=== PATIENT | female | born 1930 | race Two or more races ===

== ENCOUNTER 2019-07-05 06:54 | Inpatient (IN) | payer MEDICARE, OTHER ==
[~2019-07-05] VITALS: Ht 149.9 cm; Wt 51.7 kg
--- NOTE | 2019-07-05 06:58 | NUR ---
BIBEMS PT FOUND LYING ON BATHROOM FLOOR. PT ALTERED PER SNF STAFF. UNK KO. NO OBVIOUS HEAD TRAUMA. TO ER BED 8, HOOKED TO MONITOR, CHANGED TO HOSP GOWN, WARM BLANKET PROVIDED, PATIENT AOx1 , BREATHING EVEN AND UNLABORED. DR JAMES AT BEDSIDE
[2019-07-05] MEDS ORDERED: IV NS 0.9% 500 ML BAG IV ONE (07:30)
[2019-07-05 07:32] LABS: BASOPHILS % (AUTO) 0.4 % (0.0-2.0); EOSINOPHILS % (AUTO) 0.8 % (0.0-6.0); HEMATOCRIT 44 % (33-45); HEMOGLOBIN 14.3 g/dL (11.5-14.8); LYMPHOCYTES # (AUTO) 1.6 /CMM (0.8-4.8); LYMPHOCYTES % (AUTO) 16.8 % (20.0-44.0); MEAN CORPUSCULAR HGB CONC 33 g/dl (31.0-36.0); MEAN CORPUSCULAR VOLUME 95 fL (82-100); MONOCYTES # (AUTO) 0.5 /CMM (0.1-1.30); MONOCYTES % (AUTO) 5.5 % (2.0-12.0); NEUTROPHILS # (AUTO) 7.4 /CMM (1.8-8.9); NEUTROPHILS % (AUTO) 76.5 % (43.0-81.0); PLATELET COUNT (AUTO) 208 /CMM (150-450); RED BLOOD CELL COUNT(AUTO) 4.59 MIL/uL (4.0-5.2); WHITE BLOOD COUNT (AUTO) 9.7 K/uL (4.3-11.0)
[2019-07-05 07:39] LABS: CALCIUM, SERUM 9.1 mg/dL (8.5-10.1); CREATININE 1.1 mg/dL (0.6-1.3)
[2019-07-05 08:50] LABS: APPEARANCE,URINE Clear (CLEAR); BILIRUBIN,URINE Negative (NEGATIVE); BLOOD, URINE Trace-intact Ery/uL (NEGATIVE); COLOR,URINE Yellow (YELLOW); KETONES,URINE Negative (NEGATIVE); LEUKOCYTE ESTERASE ,URINE Negative (NEGATIVE); NITRITE, URINE Negative (NEGATIVE); PH,URINE 5.5 (5.0-8.0); PROTEIN,URINE Negative (NEGATIVE); UGLUCOSE Negative (NEGATIVE); UROBILINOGEN,URINE 0.2 EU/dL (0.2)
[2019-07-05 08:53] LABS: BACTERIA,URINE Rare /HPF (None Seen); SQUAMOUS EPITHELIAL CELL,UR Few /HPF (None Seen); WBC,URINE 0-2 /HPF (0-3)
--- NOTE | 2019-07-05 09:02 | NUR ---
WHEELED OUT VIA RNEY FOR CT SCAN
[2019-07-05] MEDS ORDERED: CRAN3875 PO (09:12)
[2019-07-05] MEDS ORDERED: DOCU-141 PO (09:12)
[2019-07-05] MEDS ORDERED: DICY10CA13 PO (09:12)
[2019-07-05] MEDS ORDERED: APRE30TA2 PO (09:12)
[2019-07-05] MEDS ORDERED: OMEG1CAP55 PO (09:12)
[2019-07-05] MEDS ORDERED: MAGN400O6 PO (09:12)
[2019-07-05] MEDS ORDERED: DEXT15DR6 EACHEYE (09:12)
[2019-07-05] MEDS ORDERED: CYCL30DR OP (09:12)
[2019-07-05] MEDS ORDERED: FAMO20TA8 PO (09:12)
[2019-07-05] MEDS ORDERED: GABA-532 PO (09:12)
[2019-07-05] MEDS ORDERED: ACET325T53 PO (09:12)
[2019-07-05] MEDS ORDERED: LACT1CAP61 PO (09:12)
[2019-07-05] MEDS ORDERED: MULT-447 PO (09:12)
[2019-07-05] MEDS ORDERED: CRAN425C6 PO (09:12)
[2019-07-05] MEDS ORDERED: OXYB10TA30 PO (09:12)
--- NOTE | 2019-07-05 10:07 | NUR ---
called [facility] [phone] its chang
--- NOTE | 2019-07-05 10:21 | NUR ---
called colin its felipe.
--- NOTE | 2019-07-05 11:20 | NUR ---
CALLED FOR MS BED
--- NOTE | 2019-07-05 11:29 | NUR ---
GOT BED 310-2
--- NOTE | 2019-07-05 11:51 | NUR ---
REPORT GIVEN TO ALYSSA CHAPMAN OF MS UNIT
[2019-07-05 13:15] VITALS: BP 104/57
--- NOTE | 2019-07-05 13:30 | NUR ---
MS RN NOTES RECEIVED PATIENT FROM ER AFTER LUNCH PATIENT IN BED RESTING, OPENS EYES WITH PAINFUL STIMULI ONLY. BP OF 95/58 PULSE OF 95 PULSE OX OF 96%. DR. MARTÍNEZ MADE AWARE ORDERS GIVEN FOR STAT ABG AND DR MARTÍNEZ WILL EVALUATE PATIENT SOON SHE CAN. WILL CONTINUE TO MONITOR CLOSELY.
[2019-07-05] MEDS ORDERED: Z GUARD REMEDY 2 OZ OINT TP PRN (14:00)
[2019-07-05] MEDS ORDERED: MORPHINE SULFATE INJ 2 MG/ML DISP.SYRIN IV PRN (14:00)
[2019-07-05] MEDS ORDERED: ACETAMINOPHEN 325 MG TABLET PO PRN (14:00)
[2019-07-05] MEDS ORDERED: ONDANSETRON HCL/PF 4 MG/2 ML VIAL IVP PRN (14:00)
[2019-07-05] MEDS ORDERED: MAGNESIUM HYDROXIDE 30 ML UDC PO PRN (14:00)
[2019-07-05] MEDS: IV NS 0.9% 1,000 ML IV PRN (14:07)
[2019-07-05 14:35] LABS: ABG PH 7.481 (7.350-7.450); ABG PO2 81.4 mmHg (75.0-100.0); AaDO2 81.7 mmHg; COHb 0.5 % (0.5-1.5); MetHb 0.5 % (0.0-1.5); SITE, ABG Left Radial
[2019-07-05 16:00] VITALS: BP 106/59
--- NOTE | 2019-07-05 16:00 | NUR ---
DIRECTOR OF LABOR RELATIONS NOTES PATIENT SEEN AND EVALUATED BY DR. MARTÍNEZ ORDERS TO ADD AMONIA LEVEL TO AM LABS OBTAIN URINE FOR DRUG SCREEN. TRANSFER TO TELE. CONSULT WITH DR. MEEKS. CONTINUE IV FLUIDS. AND CONTINUE TO MONITOR.
--- NOTE | 2019-07-05 18:24 | NUR ---
WASH MILL OPERATOR NOTES PATIENT IN BED SLEEPING HARD OPENS EYES TO PAINFUL STIMULI. PATIENT APPEARS LETHARGIC. DAUGHTER AT BEDSIDE. COMPRESSION DEVICE APPLIED TO BLE. PERIPHERAL IV INTACT PATENT RUNNING NS AT 75ML/HR. PATIENT ON TELE MONITORING PER DR. MARTÍNEZ'S ORDERS SR . BED IN LOW LOCKED POSITION. CALL LIGHT WITHIN REACH. WILL CONTINUE TO MONITOR. PATIENT WITH NO ACUTE CHANGES.
--- NOTE | 2019-07-05 19:40 | NUR ---
RN OPENING NOTES RECEIVED REPORT FROM STEPHENMSALEXANDER BULLARD. FAMILY VISITING AT BEDSIDE. PER REPORT Pt ARRIVED TO THE FLOOR LETHARGIC, AND ONLY WITHDRAWS FROM PAIN AND STERNAL RUBBING; PER REPORT AND FAMILY REPORT Pt DID OPEN HER EYES WHEN LABS WERE BEING DRAWN, BUT DID NOT SPEAK, AND WENT BACK TO SLEEP RIGHT AFTER. PER FAMILY REPORT, Pt IS ABLE TO SPEAK AND COMMUNICATE WELL, EVEN WITH BASELINE DEMENTIA. FOUND Pt STILL ASLEEP, WITH UNLABORED RESPIRATIONS, AND EQUAL CHEST RISE AND FALL. ON TELE MONITOR, WITH TELE READING SR 90s. IV ACCESS ON LFA #20G, IVF NS RUNNING @75ML/HR, INFUSING WELL. SAFETY MEASURES IN PLACE, BED LOW, LOCKED, HOB ELEVATED, SIDE RAILS UP, CALL LIGHT AND BEDSIDE TABLE WITHIN REACH. WILL CONTINUE TO MONITOR Pt's CONDITION AND SAFETY THROUGHOUT THE NIGHT.
[2019-07-05 20:00] VITALS: BP 105/50
[2019-07-06 00:01] VITALS: BP 120/62
[2019-07-06 04:00] VITALS: BP 114/68
--- NOTE | 2019-07-06 06:30 | NUR ---
RN NOTES BLADDER SCANNER SHOWED >300CC OF URINE BEING RETAINED. INFORMED DR BLANCO, GAVE ORDER FOR STRAIGHT CATH X1. WILL CARRY OUT ORDER.
--- NOTE | 2019-07-06 07:00 | NUR ---
RN NOTES 400ML STRAIGHT CATH URINE OUTPUT TEA COLORED, NO SEDIMENTS NOTED.
[2019-07-06 07:13] LABS: BASOPHILS % (AUTO) 0.1 % (0.0-2.0); EOSINOPHILS % (AUTO) 0.1 % (0.0-6.0); HEMATOCRIT 39 % (33-45); LYMPHOCYTES # (AUTO) 0.8 /CMM (0.8-4.8); LYMPHOCYTES % (AUTO) 5.7 % (20.0-44.0); MEAN CORPUSCULAR HGB CONC 33 g/dl (31.0-36.0); MEAN CORPUSCULAR VOLUME 93 fL (82-100); MONOCYTES # (AUTO) 0.8 /CMM (0.1-1.30); MONOCYTES % (AUTO) 5.5 % (2.0-12.0); NEUTROPHILS # (AUTO) 13.1 /CMM (1.8-8.9); NEUTROPHILS % (AUTO) 88.6 % (43.0-81.0); PLATELET COUNT (AUTO) 165 /CMM (150-450); RED BLOOD CELL COUNT(AUTO) 4.24 MIL/uL (4.0-5.2); WHITE BLOOD COUNT (AUTO) 14.8 K/uL (4.3-11.0)
--- NOTE | 2019-07-06 07:15 | NUR ---
RN CLOSING NOTES NO SIGNIFICANT CHANGES IN Pt's CONDITION. Pt IS RESTING COMFORTABLY IN BED. NO S/S OF ACUTE DISTRESS OR SOB NOTED. ALL NEEDS MET AND ATTENDED TO. SAFETY MEASURES IN PLACE. WILL ENDORSE TO DAYSHIFT RN FOR Pt's SUSIE.
[2019-07-06 07:43] LABS: THYROID STIMULATING HORMONE 0.634 uIU/mL (0.358-3.74)
[2019-07-06 07:46] LABS: ALBUMIN 2.9 g/dL (3.4-5.0); BILIRUBIN,TOTAL 0.7 mg/dL (0.2-1.0); CALCIUM, SERUM 8.5 mg/dL (8.5-10.1); MAGNESIUM 2.1 mg/dL (1.8-2.4); PHOSPHORUS 2.8 mg/dL (2.5-4.9); POTASSIUM 4.3 mmol/L (3.5-5.1); TOTAL PROTEIN, SERUM 6.7 g/dL (6.4-8.2)
[2019-07-06 08:00] VITALS: BP 113/72
--- NOTE | 2019-07-06 08:17 | NUR ---
Tele/RN opening Note Received patient in bed, able to responds pain stimuli. Does no appears pain or any discomfort, skin is warm to touch, clean/dry, intact IV site. Respiratory even and unlabored with oxygen at 2LPM. keep lower position of bed with elevated HOB. Call light within reach, will continue to monitor.
[2019-07-06] MEDS: IV NS 0.9% 1,000 ML IV PRN (08:35)
[2019-07-06] MEDS ORDERED: GADOTERIDOL 279.3 MG/ML VIAL IV ONE (12:52)
[2019-07-06 16:00] VITALS: BP 129/60
[2019-07-06] MEDS: CEFTRIAXONE 1 G in IV D5W 50 ML IV SCH (16:28)
--- NOTE | 2019-07-06 18:30 | NUR ---
Tele/RN Closing Note Patient is in bed sleeping comfortably, daughter is at bed side. Seen by after MRI brain and spoke with daughter regarding result. Skin is warm to touch, clean/dry. Respiratory even and unlabored with oxygen 2LPM. Kept lower position of bed with elevated HOB. Call light within reach, will endorse hotel night auditor.
--- NOTE | 2019-07-06 19:45 | NUR ---
RN OPENING NOTES RECEIVED REPORT FROM JESSICA MORALEZ. FAMILY VISITING AT BEDSIDE. PER REPORT Pt ARRIVED TO THE FLOOR LETHARGIC, AND ONLY WITHDRAWS FROM PAIN AND STERNAL RUBBING; PER REPORT AND FAMILY REPORT Pt DID OPEN HER EYES WHEN LABS WERE BEING DRAWN, BUT DID NOT SPEAK, AND WENT BACK TO SLEEP RIGHT AFTER. PER FAMILY REPORT, Pt IS ABLE TO SPEAK AND COMMUNICATE WELL, EVEN WITH BASELINE DEMENTIA. FOUND Pt STILL ASLEEP, WITH UNLABORED RESPIRATIONS, AND EQUAL CHEST RISE AND FALL. PER RN REPORT Pt HAD MRI DONE TODAY, RESULTS SHOWED THAT Pt DID HAVE A STROKE WHEN Pt HAD A FALL BACK AT SNF. Pt IS STILL NPO. IV ACCESS ON LFA #20G, IVF NS RUNNING @75ML/HR, INFUSING WELL. SAFETY MEASURES IN PLACE, BED LOW, LOCKED, HOB ELEVATED, SIDE RAILS UP, CALL LIGHT AND BEDSIDE TABLE WITHIN REACH. WILL CONTINUE TO MONITOR Pt's CONDITION AND SAFETY THROUGHOUT THE NIGHT.
[2019-07-06 20:00] VITALS: BP 157/68
[2019-07-06 20:30] VITALS: BP 157/68
[2019-07-07 01:15] VITALS: BP 149/61
[2019-07-07 06:33] LABS: BASOPHILS % (AUTO) 0.2 % (0.0-2.0); EOSINOPHILS % (AUTO) 0.1 % (0.0-6.0); HEMATOCRIT 35 % (33-45); HEMOGLOBIN 11.8 g/dL (11.5-14.8); LYMPHOCYTES # (AUTO) 0.7 /CMM (0.8-4.8); LYMPHOCYTES % (AUTO) 5.8 % (20.0-44.0); MEAN CORPUSCULAR HGB CONC 34 g/dl (31.0-36.0); MEAN CORPUSCULAR VOLUME 94 fL (82-100); MONOCYTES # (AUTO) 0.7 /CMM (0.1-1.30); MONOCYTES % (AUTO) 5.5 % (2.0-12.0); NEUTROPHILS # (AUTO) 11.2 /CMM (1.8-8.9); NEUTROPHILS % (AUTO) 88.4 % (43.0-81.0); PLATELET COUNT (AUTO) 143 /CMM (150-450); RED BLOOD CELL COUNT(AUTO) 3.74 MIL/uL (4.0-5.2); WHITE BLOOD COUNT (AUTO) 12.6 K/uL (4.3-11.0)
--- NOTE | 2019-07-07 06:41 | NUR ---
RN CLOSING NOTES NO SIGNIFICANT CHANGES IN Pt's CONDITION. Pt IS RESTING COMFORTABLY IN BED. NO S/S OF ACUTE DISTRESS OR SOB NOTED DURING THE NIGHT. ALL NEEDS MET AND ATTENDED TO. SAFETY MEASURES IN PLACE. WILL ENDORSE TO DAYSHIFT RN FOR Pt's SUSIE.
[2019-07-07] MEDS: IV NS 0.9% 1,000 ML IV PRN ×2 (06:51→21:39)
--- NOTE | 2019-07-07 07:00 | NUR ---
MS/RN Opening Note Received patient in bed, able to responds pain stimuli. Skin is warm to touch, no appears pain or any discomfort. Respiratory even and unlabored with oxygen at 2LPM. Keep lower position of bed with elevated HOB. Call light within reach, will continue to monitor.
[2019-07-07 07:09] LABS: ALBUMIN 2.7 g/dL (3.4-5.0); BILIRUBIN,TOTAL 0.6 mg/dL (0.2-1.0); CALCIUM, SERUM 8.3 mg/dL (8.5-10.1); CREATININE 0.8 mg/dL (0.6-1.3); MAGNESIUM 2.1 mg/dL (1.8-2.4); PHOSPHORUS 2.4 mg/dL (2.5-4.9); POTASSIUM 3.7 mmol/L (3.5-5.1); TOTAL PROTEIN, SERUM 6.4 g/dL (6.4-8.2)
[2019-07-07 08:24] VITALS: BP 151/65
[2019-07-07] MEDS: ENOXAPARIN SODIUM 30 MG/0.3 ML DISP.SYRIN SQ SCH (09:46)
[2019-07-07] MEDS ORDERED: IV NS 0.9% 500 ML IV ONE (15:00)
[2019-07-07] MEDS: CEFTRIAXONE 1 G in IV D5W 50 ML IV SCH (15:25)
[2019-07-07 15:58] VITALS: BP 152/69
[2019-07-07] MEDS ORDERED: POTASSIUM PHOSPHATE MM 5 MMOL in IV D5W 100 ML IV SCH (18:00)
--- NOTE | 2019-07-07 18:30 | NUR ---
MS/RN Closing Note Patient is sleeping comfortably in bed, no appears pain or any discomfort. Skin is warm to touch, kept intact IV site, picture taken skin discoloration on chest. Resp. even and unlabored with room air, no sob or distress observed. Keep remain lower portion of bed with elevated HOB. Call light within reach, all needs met, will endorse night nurse.
--- NOTE | 2019-07-07 19:46 | NUR ---
MS RN PATIENT IN BED LETHARGIC, RESPONDS TO VERBAL STIMULI. FAMILY AT BEDSIDE. STABLE AND NOT IN DISTRESS. SAFETY MEASURES IN PLACE. WILL CONTINUE TO MONITOR.
[2019-07-07 20:00] VITALS: BP 140/52
--- NOTE | 2019-07-07 20:30 | NUR ---
DR. PRYOR CALLED ORDERED TO OBTAINED CONSENT FOR EGD WITH PEG PLACEMENT, KEEP PT NPO, HOLD AM LOVENOX DOSE FOR TOMORROW 07/08/2019 AM ONLY READ BACK AND VERIFIED ORDERS NOTED AND CARRIED OUT
[2019-07-07 20:32] VITALS: BP 165/74
--- NOTE | 2019-07-08 06:22 | NUR ---
NO SIGNIFICANT CHANGES, OBTUNDED, NO S/S OF DISTRESS. MAINTAINS NPO. GRANDDAUGHTER AT BEDSIDE, PT SLEPT WELL. ON 2LPM VIA NC 02 SAT 97%. NEEDS ATTENDED AND ANTICIPATED, KEPT CLEAN, DRY AND COMFORTABLE. AM CARE RENDERED. REPOSITION EVERY 2 HOURS. OFFLOAD HEELS AND ELBOWS AT ALL TIMES. SAFETY MEASURES AT ALL TIMES. WILL ENDORSE NEXT SHIFT POC.
[2019-07-08 06:51] LABS: BASOPHILS % (AUTO) 0.3 % (0.0-2.0); EOSINOPHILS % (AUTO) 0.3 % (0.0-6.0); HEMATOCRIT 35 % (33-45); HEMOGLOBIN 11.7 g/dL (11.5-14.8); LYMPHOCYTES # (AUTO) 0.7 /CMM (0.8-4.8); LYMPHOCYTES % (AUTO) 7.2 % (20.0-44.0); MEAN CORPUSCULAR HGB CONC 34 g/dl (31.0-36.0); MEAN CORPUSCULAR VOLUME 93 fL (82-100); MONOCYTES # (AUTO) 0.7 /CMM (0.1-1.30); MONOCYTES % (AUTO) 6.9 % (2.0-12.0); NEUTROPHILS # (AUTO) 8.6 /CMM (1.8-8.9); NEUTROPHILS % (AUTO) 85.3 % (43.0-81.0); PLATELET COUNT (AUTO) 137 /CMM (150-450); RED BLOOD CELL COUNT(AUTO) 3.72 MIL/uL (4.0-5.2)
[2019-07-08 07:15] LABS: CALCIUM, SERUM 8.3 mg/dL (8.5-10.1); CREATININE 0.7 mg/dL (0.6-1.3); MAGNESIUM 2.1 mg/dL (1.8-2.4); PHOSPHORUS 2.5 mg/dL (2.5-4.9); POTASSIUM 3.8 mmol/L (3.5-5.1)
--- NOTE | 2019-07-08 07:30 | NUR ---
m/s auto mechanics instructor: initial assessment received pt in bed with eyes close, appears lethargic, difficult to arouse. unable to comprehend. grand daughter at bedside and informed me that pt open her eyes around 5 in the morning. remains npo, pt for egd with peg placement in am. all consents in chart. continue on ivf, infusing well. will continue to monitor.
[2019-07-08 08:00] VITALS: BP 160/74
[2019-07-08] MEDS: ENOXAPARIN SODIUM 30 MG/0.3 ML DISP.SYRIN SQ SCH (08:03)
--- NOTE | 2019-07-08 08:45 | NUR ---
m/s flat sorting machine clerk: notes pt taking down to o.r. via bed accompanied by o.r. staff.
--- NOTE | 2019-07-08 09:13 | NUR ---
WOUND CARE CONSULT: PT OFF UNIT HAVING SURGERY AT THIS TIME. PER NURSING REPORT, PT HAS INTACT BLISTER TO RT HEEL. RECOMMENDATIONS MADE FOR SKIN PROTECTION AND WOUND CARE BASED ON NURSING DOCUMENTATION. DISCUSSED WITH NURSING STAFF. WILL SEE PT PT CONDITION PERMITS. MD IN AGREEMENT WITH PLAN OF CARE.
[2019-07-08] MEDS ORDERED: LEVOFLOXACIN 500 MG /D5W 100ML 100 ML IV ONE (09:31)
[2019-07-08 10:25] VITALS: BP 141/86
--- NOTE | 2019-07-08 10:25 | NUR ---
m/s marine engine driver: notes received pt from recovery room with dx: s/p peg placement. pt remains lethargic. vss. hob elevated. placed scd to ble. call light within reach. abdominal binder in place to abdomen. orders received and carried out. will continue to monitor.
--- NOTE | 2019-07-08 11:00 | NUR ---
m/s deburrer machine: md visit daughter and grand daughter at bedside and talking to dr. cornejo. all made aware re: right heel blister (intact) and mepilex applied as ordered. florencia heels offload. will continue to monitor.
[2019-07-08] MEDS: Potassium Chloride 10 MEQ in IV D5/0.45 NACL 1,000 ML IV PRN (12:10)
--- NOTE | 2019-07-08 13:15 | NUR ---
m/s skin drier: notes pharmacist called re: home meds needs to be reconciled. f/u made to dr. cornejo.
--- NOTE | 2019-07-08 13:30 | NUR ---
m/s ear nose and throat specialist: notes noted sacral crease with crack/dimple and a pimple like on lower back area. cn made aware. daughter remains at bedside and made aware. wound consult ordered. dr. cornejo made aware. mepilex applied and z guard ordered.
--- NOTE | 2019-07-08 13:54 | NUR ---
m/s solid surface fabricator: notes f/u made to dietitian re: tube feeding recommendations and will put their recommendation as stated.
--- NOTE | 2019-07-08 15:00 | NUR ---
m/s shipping packer: neuro f/u seen and examined by dr. momin at this time and spoke to daughter re: repeat eeg today as stated.
[2019-07-08] MEDS: CEFTRIAXONE 1 G in IV D5W 50 ML IV SCH (15:25)
[2019-07-08 16:00] VITALS: BP 147/66
[2019-07-08] MEDS: Z GUARD REMEDY 4 OZ OINT TP SCH ×2 (17:30→21:39)
--- NOTE | 2019-07-08 17:30 | NUR ---
m/s metal tile setter: notes f/u made to pharmacist re: z guard and will bring it up as stated.
--- NOTE | 2019-07-08 19:15 | NUR ---
m/s cake cutter machine: notes bedside report given to jocelyn (rn) for continuity of care.
--- NOTE | 2019-07-08 19:33 | NUR ---
MS RN PATIENT IN BED OBTUNDED SLIGHTLY RESPONDS TO VERBAL STIMULI. S/P EEG. STABLE AND NOT IN DISTRESS. SAFETY MEASURES IN PLACE. WILL CONTINUE TO MONITOR.
--- NOTE | 2019-07-08 19:50 | NUR ---
Received tel orders from to start IV 1000 mg keppra now once and keppra 500 mg IV q12hr after. read back and verified orders noted and carried out.
[2019-07-08 20:00] VITALS: BP 136/64
[2019-07-08] MEDS ORDERED: LEVETIRACETAM (500MG) 1,000 MG in IV NS 0.9% 100 ML IV ONE (21:00)
--- NOTE | 2019-07-08 22:00 | NUR ---
MS RN PT REPOSITION, PM CARE. PT SLEEPING AT THIS TIME. NO S/S OF DISTRESS
[2019-07-09] MEDS: Potassium Chloride 10 MEQ in IV D5/0.45 NACL 1,000 ML IV PRN ×2 (02:05→17:29)
[2019-07-09] MEDS: JEVITY 1.2 CAL 1,000 ML BOTTLE GT PRN (06:01)
--- NOTE | 2019-07-09 06:33 | NUR ---
PT STABLE AND NOT IN DISTRESS, MONITORED ACCORDINGLY. NO C/O OF PAIN. GRANDDAUGHTER AT BEDSIDE, STILL ON 2LPM VIA NC 02 SAT 95%. AM CARE RENDERED. REPOSITION EVERY 2 HOURS. OFFLOAD HEELS AND ELBOWS AT ALL TIMES. NEEDS ATTENDED AND ANTICIPATED, KEPT CLEAN, DRY AND COMFORTABLE. STARTED ON 0600 GT FEEDING JEVITY 1.2 @ 20 ML/HR 5ML RESIDUAL CLEAR. TOLERATED FEEDING WELL. SAFETY MEASURES AT ALL TIMES. WILL ENDORSE NEXT SHIFT POC. Addendum: 07/09/19 at 0705 by RADHA BAIRD RN NO SEIZURE ACTIVITY NOTED THROUGHOUT THE SHIFT.
[2019-07-09 06:51] LABS: BASOPHILS % (AUTO) 0.3 % (0.0-2.0); EOSINOPHILS % (AUTO) 0.6 % (0.0-6.0); HEMATOCRIT 30 % (33-45); HEMOGLOBIN 10.5 g/dL (11.5-14.8); LYMPHOCYTES # (AUTO) 0.7 /CMM (0.8-4.8); LYMPHOCYTES % (AUTO) 10.4 % (20.0-44.0); MEAN CORPUSCULAR HGB CONC 35 g/dl (31.0-36.0); MEAN CORPUSCULAR VOLUME 92 fL (82-100); MONOCYTES # (AUTO) 0.6 /CMM (0.1-1.30); MONOCYTES % (AUTO) 8.9 % (2.0-12.0); NEUTROPHILS # (AUTO) 5.6 /CMM (1.8-8.9); NEUTROPHILS % (AUTO) 79.8 % (43.0-81.0); PLATELET COUNT (AUTO) 137 /CMM (150-450); RED BLOOD CELL COUNT(AUTO) 3.31 MIL/uL (4.0-5.2); WHITE BLOOD COUNT (AUTO) 7.1 K/uL (4.3-11.0)
[2019-07-09 07:11] LABS: CALCIUM, SERUM 7.8 mg/dL (8.5-10.1); CREATININE 0.6 mg/dL (0.6-1.3); PHOSPHORUS 1.8 mg/dL (2.5-4.9); POTASSIUM 3.5 mmol/L (3.5-5.1)
--- NOTE | 2019-07-09 07:34 | NUR ---
MS RN NOTES RECEIVED PATIENT IN BED RESTING COMFORTABLY IN MODERATE HIGH BACK REST. OBTUNDED, FAMILY AT BEDSIDE. NO SIGNS OF DISTRESS NOTED AT THIS TIME. ON 2LPM VIA NC. ON IV FLUIDS ON LFA#20 WITH D5 1/2 WITH K RUNNING @80ML/HR. PATENT AND INTACT. ON GT FEEDING JEVITY 1.2 @ 20 ML/HR. TOLERATED FEEDING. SAFETY MEASURES IN PLACE, BED IN LOW LOCKED POSITION WITH SIDE RAILS UP X2. CALL LIGHT WITHIN REACH. WILL CONTINUE TO MONITOR.
[2019-07-09 08:00] VITALS: BP 150/65
[2019-07-09] MEDS: LEVETIRACETAM (500MG) 500 MG in IV NS 0.9% 100 ML IV SCH ×2 (08:51→21:16)
[2019-07-09] MEDS: ENOXAPARIN SODIUM 30 MG/0.3 ML DISP.SYRIN SQ SCH (08:57)
[2019-07-09] MEDS: Z GUARD REMEDY 4 OZ OINT TP SCH ×2 (08:57→21:26)
[2019-07-09] MEDS ORDERED: NEUTRA PHOS 1 POWD.PACKET GT ONE (12:30)
[2019-07-09] MEDS: CEFTRIAXONE 1 G in IV D5W 50 ML IV SCH (15:01)
[2019-07-09 16:00] VITALS: BP 135/60
--- NOTE | 2019-07-09 18:33 | NUR ---
MS RN NOTES PATIENT IN BED RESTING COMFORTABLY IN MODERATE HIGH BACK REST. OBTUNDED, FAMILY AT BEDSIDE. NO SIGNS OF DISTRESS NOTED THROUGHOUT THE SHIFT. ON 2LPM VIA NC. ON IV FLUIDS ON LFA#20 WITH D5 1/2 WITH K RUNNING @80ML/HR. PATENT AND INTACT. ON GT FEEDING JEVITY 1.2 @ 40 ML/HR. TOLERATED FEEDING. SAFETY MEASURES IN PLACE, BED IN LOW LOCKED POSITION WITH SIDE RAILS UP X2. CALL LIGHT WITHIN REACH. WILL ENDORSE TO PAPER HANGER NURSE FOR SUSIE.
--- NOTE | 2019-07-09 19:10 | NUR ---
MS RN ADVANCE TUBE FEEDING JEVITY 1.2 @ 50 MLS/HR. WILL CONTINUE TO MONITOR
--- NOTE | 2019-07-09 19:36 | NUR ---
MS RN PATIENT IN BED ASLEEP, GT INFUSING ORDERED. OBTUNDED,OPENS EYES, PT NOT IN DISTRESS, SAFETY MEASURES IN PLACE. WILL CONTINUE TO MONITOR.
[2019-07-09 20:00] VITALS: BP 134/56
--- NOTE | 2019-07-10 02:00 | NUR ---
MS RN TUBE FEEDING TOLERATED WELL. 5 ML RESIDUAL
[2019-07-10] MEDS: Potassium Chloride 10 MEQ in IV D5/0.45 NACL 1,000 ML IV PRN (05:25)
[2019-07-10] MEDS: JEVITY 1.2 CAL 1,000 ML BOTTLE GT PRN (05:26)
--- NOTE | 2019-07-10 06:30 | NUR ---
MS RN PT ASLEEP, OBTUNDED, OPENS EYES AT TIMES. NO S/S OF DISTRESS. DAUGHTER AT BEDSIDE. INFUSING JEVITY 1.2 @ 50 MLS/HR TOLERATED FEEDING. NURSING CARE RENDERED, NEEDS ATTENDED AND ANTICIPATED, KEPT CLEAN, DRY AND COMFORTABLE AT ALL TIMES. OFFLOAD HEELS AND ELBOWS AT ALL TIMES. NO SEIZURE ACTIVITY NOTED THROUGHOUT THE SHIFT. SAFETY MEASURES AT ALL TIMES. WILL ENDORSE NEXT SHIFT POC.
[2019-07-10 06:41] LABS: BASOPHILS % (AUTO) 0.4 % (0.0-2.0); HEMATOCRIT 33 % (33-45); HEMOGLOBIN 11.1 g/dL (11.5-14.8); LYMPHOCYTES # (AUTO) 0.7 /CMM (0.8-4.8); LYMPHOCYTES % (AUTO) 7.9 % (20.0-44.0); MEAN CORPUSCULAR HGB CONC 34 g/dl (31.0-36.0); MEAN CORPUSCULAR VOLUME 92 fL (82-100); MONOCYTES # (AUTO) 0.7 /CMM (0.1-1.30); MONOCYTES % (AUTO) 8.6 % (2.0-12.0); NEUTROPHILS # (AUTO) 6.7 /CMM (1.8-8.9); NEUTROPHILS % (AUTO) 81.1 % (43.0-81.0); PLATELET COUNT (AUTO) 165 /CMM (150-450); RED BLOOD CELL COUNT(AUTO) 3.54 MIL/uL (4.0-5.2); WHITE BLOOD COUNT (AUTO) 8.3 K/uL (4.3-11.0)
[2019-07-10 06:55] LABS: CALCIUM, SERUM 7.7 mg/dL (8.5-10.1); CREATININE 0.7 mg/dL (0.6-1.3); MAGNESIUM 1.8 mg/dL (1.8-2.4); PHOSPHORUS 2.5 mg/dL (2.5-4.9); POTASSIUM 3.7 mmol/L (3.5-5.1)
--- NOTE | 2019-07-10 07:51 | NUR ---
MS RN OPENING NOTES RECEIVED PATIENT IN BED, ASLEEP. PATIENT ON ROOM AIR BREATHING EVENLY WITH NO SIGNS OF DISTRESS AT THIS TIME. NO SIGNS OF PAIN SUCH FACIAL GRIMACING OR MOANING PRESENT. L WRIST GAUGE # 22 PRESENT AND INTACT INFUSING D5 1/2 K AT 80 MLS/HR. G-TUBE IN PLACE, INTACT INFUSING JEVITY 1.2 AT 50 MLS/HR. SAFETY PRECAUTIONS IN PLACE: BED IN LOW POSITION AND LOCKED, HOB ELEVATED AT 30 DEGREES, RAILS UP X 2, CALL LIGHT WITHIN REACH. WILL CONTINUE TO MONITOR PATIENT.
[2019-07-10 08:00] VITALS: BP 135/74
[2019-07-10] MEDS: Z GUARD REMEDY 4 OZ OINT TP SCH ×2 (08:44→22:07)
[2019-07-10] MEDS: ENOXAPARIN SODIUM 30 MG/0.3 ML DISP.SYRIN SQ SCH (08:47)
[2019-07-10] MEDS: LEVETIRACETAM (500MG) 500 MG in IV NS 0.9% 100 ML IV SCH (09:42)
[2019-07-10] MEDS ORDERED: LEVETIRACETAM SOL (5 ML) 100 MG/ML UDC GT ONE (12:00)
[2019-07-10] MEDS ORDERED: LORAZEPAM ORAL SOLN 2 MG/ML ORAL.CONC PO SCH (12:43)
[2019-07-10] MEDS: CEFTRIAXONE 1 G in IV D5W 50 ML IV SCH (14:41)
[2019-07-10] MEDS ORDERED: LORAZEPAM 0.5 MG TABLET GT PRN (16:30)
[2019-07-10] MEDS ORDERED: LORAZEPAM 0.5 MG TABLET PO PRN ×2 (16:30)
[2019-07-10] MEDS: LORAZEPAM 0.5 MG TABLET GT SCH (16:48)
[2019-07-10] MEDS ORDERED: LORAZEPAM 0.5 MG TABLET GT SCH (17:00)
--- NOTE | 2019-07-10 18:55 | NUR ---
MS RN CLOSING NOTES PATIENT IN BED, STILL ASLEEP AND NOT RESPONDING TO ANY CONVERSATION. PATIENT ON OXYGEN THERAPY AT 3.5 LPM VIA NASAL CANULA SATURATING AT 95%. BREATHING EVENLY WITH NO SIGNS OF DISTRESS AT THIS TIME. NO SIGNS OF PAIN SUCH FACIAL GRIMACING OR MOANING PRESENT. L WRIST GAUGE # 22 PRESENT AND INTACT. G-TUBE IN PLACE, INTACT INFUSING JEVITY 1.2 AT 50 MLS/HR. SAFETY PRECAUTIONS IN PLACE: BED IN LOW POSITION AND LOCKED, HOB ELEVATED AT 30 DEGREES, RAILS UP X 2, CALL LIGHT WITHIN REACH. WILL ENDORSE TO SPICE MILLER HAMMER MILL NURSE.
--- NOTE | 2019-07-10 19:20 | NUR ---
MS RN OPENING NOTES RECEIVED PATIENT FROM MORNING SHIFT, OBTUNDED. BREATHING REGULAR AND UNLABORED ON OXYGEN AT 2L/MIN VIA NASAL CANNULA. LEFT WRIST G22 IV LINE INTACT AND PATENT, FLUSHING WELL WITH NO BLEEDING OR S/S OF INFILTRATION NOTED. GTUBE PATENT WITH ON-GOING FEEDING AT 40CC/HR TOLERATING WELL, NO RESIDUAL ASPIRATED. HOB KEPT ELEVATED. NO S/S OF PAIN/DISCOMFORT OBSERVED OF THE TIME. BED LOW AND LOCKED ON SEMI FOWLERS POSITION. CALL LIGHT IN REACH. WILL CONTINUE TO MONITOR.
[2019-07-10 20:00] VITALS: BP 103/55
[2019-07-10] MEDS ORDERED: LEVETIRACETAM SOL (5 ML) 100 MG/ML UDC GT SCH (21:00)
[2019-07-10 22:00] VITALS: BP 103/55
--- NOTE | 2019-07-10 22:00 | NUR ---
MS RN NOTES SEEN WITH INCREASED IN RESPIRATIONS 23cpm, SUCTIONED MOUTH AND NOSE. HOB KEPT ELEVATED. MAINTAINED ON OXYGEN AT 2L/MIN VIA NASAL CANNULA.
[2019-07-10] MEDS: LEVETIRACETAM SOL (5 ML) 100 MG/ML UDC GT SCH (22:02)
--- NOTE | 2019-07-11 03:00 | NUR ---
MS RN NOTES GTUBE FEEDING INCREASED TO 50CC/HR, TOLERATING WELL. WILL CONTINUE TO MONITOR.
[2019-07-11] MEDS: JEVITY 1.2 CAL 1,000 ML BOTTLE GT PRN (06:18)
--- NOTE | 2019-07-11 06:20 | NUR ---
MS RN CLOSING NOTES PATIENT IN BED OBTUNDED. FAMILY ON BEDSIDE. BREATHING REGULAR AND UNLABORED ON OXYGEN AT 2L/MIN VIA NASAL CANNULA. LEFT WRIST G22 IV LINE PATENT AND FLUSHING WELL. GTUBE PATENT WITH ON-GOING FEEDING AT 50CC/HR TOLERATING WELL, NO RESIDUAL ASPIRATED. NO EPISODE OF NAUSEA/VOMITING SEEN THE WHOLE SHIFT. HOB KEPT ELEVATED, ON ASPIRATION PRECAUTION. NO S/S OF PAIN/DISCOMFORT OBSERVED OF THE TIME. BED LOW AND LOCKED ON SEMI FOWLERS POSITION. CALL LIGHT IN REACH. WILL ENDORSE TO MORNING SHIFT FOR SUSIE.
--- NOTE | 2019-07-11 07:25 | NUR ---
MS RN OPENING NOTES RECEIVED PATIENT IN BED, ASLEEP. FAMILY AT BEDSIDE ASLEEP WELL. PATIENT ON OXYGEN AT 4 LMP. BREATHING EVENLY WITH NO SIGNS OF DISTRESS AT THIS TIME. NO SIGNS OF PAIN SUCH FACIAL GRIMACING OR MOANING PRESENT. L WRIST GAUGE # 22 PRESENT AND INTACT, FLUSHING WELL. G-TUBE IN PLACE, PATENT INFUSING JEVITY 1.2 AT 50 MLS/HR. SAFETY PRECAUTIONS IN PLACE: BED IN LOW POSITION AND LOCKED, HOB ELEVATED AT 30 DEGREES, RAILS UP X 2, CALL LIGHT WITHIN REACH. WILL CONTINUE TO MONITOR PATIENT.
[2019-07-11 08:00] VITALS: BP 126/54
[2019-07-11] MEDS: LORAZEPAM 0.5 MG TABLET GT SCH (08:47)
[2019-07-11] MEDS: LEVETIRACETAM SOL (5 ML) 100 MG/ML UDC GT SCH ×2 (08:49→20:47)
[2019-07-11] MEDS: ENOXAPARIN SODIUM 30 MG/0.3 ML DISP.SYRIN SQ SCH (08:49)
[2019-07-11] MEDS ORDERED: LORAZEPAM 0.5 MG TABLET GT SCH (09:00)
[2019-07-11] MEDS: Z GUARD REMEDY 4 OZ OINT TP SCH ×2 (09:10→21:00)
--- NOTE | 2019-07-11 12:06 | NUR ---
WOUND CARE CONSULT: PT SEEN FOR SKIN ASSESSMENT AND NOTED TO HAVE RT HEEL INTACT BLISTER, SACRAL INTACT DEEP TISSUE INJURY AND GLUTEAL CREASE INCONTINENCE ASSOCIATED SKIN DAMAGE. RECOMMENDATIONS MADE FOR SKIN PROTECTION AND WOUND CARE. DISCUSSED WITH NURSING STAFFAND POWER MULE OPERATOR. PT IS INCONTINENT. FIRST STEP LOW AIRLOSS MATTRESS ON ORDER. MD IN AGREEMENT WITH PLAN OF CARE. Addendum: 07/11/19 at 1208 by JERALD JAMES WNDNU Amended: Links added.
[2019-07-11] MEDS ORDERED: FAMO20TA8 GT (12:32)
[2019-07-11] MEDS ORDERED: DEXT15DR6 EACHEYE (12:32)
[2019-07-11] MEDS ORDERED: MAGN400O6 GT (12:32)
[2019-07-11] MEDS ORDERED: CRAN3875 GT (12:32)
[2019-07-11] MEDS ORDERED: Provigil GT (12:32)
[2019-07-11] MEDS ORDERED: DOCU-141 GT (12:32)
[2019-07-11] MEDS ORDERED: LEVE100S GT (12:32)
[2019-07-11] MEDS ORDERED: LACT1CAP61 GT (12:32)
[2019-07-11] MEDS ORDERED: DICY10CA13 GT (12:32)
[2019-07-11] MEDS ORDERED: APRE30TA2 GT (12:32)
[2019-07-11] MEDS ORDERED: GABA-532 GT (12:32)
[2019-07-11] MEDS ORDERED: MULT-447 GT (12:32)
[2019-07-11] MEDS ORDERED: CYCL30DR OP (12:32)
[2019-07-11] MEDS ORDERED: ACET325T53 GT (12:32)
[2019-07-11] MEDS ORDERED: LACT-209 GT (12:32)
[2019-07-11] MEDS ORDERED: OXYB10TA30 GT (12:32)
[2019-07-11] MEDS ORDERED: OMEG1CAP55 GT (12:32)
[2019-07-11] MEDS: MODAFINIL 100 MG TABLET GT SCH (13:11)
[2019-07-11 16:00] VITALS: BP 133/55
[2019-07-11] MEDS: ACETAMINOPHEN 650 MG/20.3 ML UDC GT PRN (16:02)
--- NOTE | 2019-07-11 18:47 | NUR ---
MS RN CLOSING NOTES PATIENT IN BED, ASLEEP, NON-VERBAL. NEURO CONSULT DONE. FAMILY AT BEDSIDE THROUGHOUT THE DAY. PATIENT ON OXYGEN AT 4 LMP. BREATHING EVENLY WITH NO SIGNS OF DISTRESS AT THIS TIME. NO SIGNS OF PAIN SUCH FACIAL GRIMACING OR MOANING PRESENT. L WRIST GAUGE # 22 PRESENT AND INTACT, FLUSHING WELL. G-TUBE IN PLACE, PATENT INFUSING JEVITY 1.2 AT 50 MLS/HR. SAFETY PRECAUTIONS IN PLACE: BED IN LOW POSITION AND LOCKED, HOB ELEVATED AT 30 DEGREES, RAILS UP X 2, CALL LIGHT WITHIN REACH. WILL ENDORSE TO RELAY ASSEMBLER NURSE.
--- NOTE | 2019-07-11 19:20 | NUR ---
MS RN OPENING NOTES RECEIVED PATIENT FROM MORNING SHIFT, OBTUNDED. BREATHING REGULAR AND UNLABORED ON OXYGEN AT 2L/MIN VIA NASAL CANNULA. LEFT WRIST G22 IV LINE INTACT AND PATENT, FLUSHING WELL WITH NO BLEEDING OR S/S OF INFILTRATION NOTED. GTUBE PATENT WITH ON-GOING FEEDING AT 50CC/HR TOLERATING WELL, NO RESIDUAL ASPIRATED. HOB KEPT ELEVATED. NO S/S OF PAIN/DISCOMFORT OBSERVED OF THE TIME. BED LOW AND LOCKED ON SEMI FOWLERS POSITION. CALL LIGHT IN REACH. WILL CONTINUE TO MONITOR.
[2019-07-11 20:00] VITALS: BP 145/43
[2019-07-11 21:00] VITALS: BP 145/43
--- NOTE | 2019-07-11 22:30 | NUR ---
MS RN NOTES TRANSFERRED PATIENT ON A KCI MATTRESS
[2019-07-12] MEDS: JEVITY 1.2 CAL 1,000 ML BOTTLE GT PRN (04:01)
[2019-07-12 08:00] VITALS: BP 153/65
[2019-07-12] MEDS: LORAZEPAM 0.5 MG TABLET GT SCH (09:00)
[2019-07-12] MEDS: MODAFINIL 100 MG TABLET GT SCH (11:00)
[2019-07-12] MEDS: LEVETIRACETAM SOL (5 ML) 100 MG/ML UDC GT SCH ×2 (11:00→21:22)
[2019-07-12] MEDS: ENOXAPARIN SODIUM 30 MG/0.3 ML DISP.SYRIN SQ SCH (11:01)
[2019-07-12] MEDS: Z GUARD REMEDY 4 OZ OINT TP SCH ×2 (11:25→21:22)
[2019-07-12] MEDS: ACETAMINOPHEN 650 MG/20.3 ML UDC GT PRN (14:36)
[2019-07-12 16:00] VITALS: BP 110/51
[2019-07-12 20:02] VITALS: BP 111/47
[2019-07-12 20:23] VITALS: BP 111/47
--- NOTE | 2019-07-12 21:59 | NUR ---
Recieved patient in the bed. She is obtunded. Aspiartion precautions the Head of the bead is elevated. Fdg to peg tube at 50 ml hr and this is the goal amanda. Daughter at the bedside Peg tube is patent
--- NOTE | 2019-07-13 05:27 | NUR ---
ending notes: Patient remains in an obtunded state. She moore not open her eyes. Incontinent stool X2 soft brown. Incontinent large amount Urine. Cleaned anmd repositioned freq. Peg feeding Jevity 1.2 Troy infusing at 50 ml / hr and this is the goal. No residual checked X2. Aspiration precautions thru the night.
[2019-07-13 07:16] LABS: BASOPHILS % (AUTO) 0.4 % (0.0-2.0); EOSINOPHILS % (AUTO) 3.8 % (0.0-6.0); HEMATOCRIT 35 % (33-45); HEMOGLOBIN 11.4 g/dL (11.5-14.8); LYMPHOCYTES # (AUTO) 0.9 /CMM (0.8-4.8); LYMPHOCYTES % (AUTO) 12.5 % (20.0-44.0); MEAN CORPUSCULAR HGB CONC 33 g/dl (31.0-36.0); MEAN CORPUSCULAR VOLUME 93 fL (82-100); NEUTROPHILS # (AUTO) 4.8 /CMM (1.8-8.9); NEUTROPHILS % (AUTO) 69.3 % (43.0-81.0); PLATELET COUNT (AUTO) 203 /CMM (150-450); RED BLOOD CELL COUNT(AUTO) 3.73 MIL/uL (4.0-5.2)
[2019-07-13 07:55] LABS: ALBUMIN 2.2 g/dL (3.4-5.0); BILIRUBIN,TOTAL 0.3 mg/dL (0.2-1.0); CALCIUM, SERUM 8.4 mg/dL (8.5-10.1); CREATININE 0.7 mg/dL (0.6-1.3); MAGNESIUM 2.3 mg/dL (1.8-2.4); PHOSPHORUS 3.3 mg/dL (2.5-4.9); POTASSIUM 4.3 mmol/L (3.5-5.1); TOTAL PROTEIN, SERUM 6.5 g/dL (6.4-8.2)
--- NOTE | 2019-07-13 07:55 | NUR ---
MS/RN - Assessment Patient is obtunded, stable on room air, no shortness of breath, no s/s of pain, remain afebrile. Saline lock on the left wrist is patent, intact, with no signs of infiltration. GTF Jevity at 50 ml/hr tolerated well. Labs reviewed, no critical results noted. Fall and aspiration precautions maintained. Will continue with current medical management.
[2019-07-13 08:00] VITALS: BP_SYST 144; BP_SYST 190; BP_DIAS 63
[2019-07-13] MEDS: MODAFINIL 100 MG TABLET GT SCH (08:10)
[2019-07-13] MEDS: LEVETIRACETAM SOL (5 ML) 100 MG/ML UDC GT SCH ×2 (08:10→21:06)
[2019-07-13] MEDS: LORAZEPAM 0.5 MG TABLET GT SCH (08:10)
[2019-07-13] MEDS: ENOXAPARIN SODIUM 30 MG/0.3 ML DISP.SYRIN SQ SCH (08:14)
[2019-07-13] MEDS: Z GUARD REMEDY 4 OZ OINT TP SCH ×2 (08:17→21:10)
[2019-07-13 16:00] VITALS: BP 127/60
--- NOTE | 2019-07-13 18:21 | NUR ---
MS/RN - End of shift summary No significant change in condition seen, afebrile, no s/s of pain, not in any form of distress, room air, tolerated tube feeding well, possible discharge back to [facility] tonight. Will continue with current plan of care.
--- NOTE | 2019-07-13 19:05 | NUR ---
MS RN NOTE RECEIVED PT IN STABLE CONDITION, NOTED IN BED WITH FAMILY AT BEDSIDE. NO SIGNS OF SOB OR DISTRESS, NO INDICATION OF PAIN OR N/V. IV IN L WRIST #[address] S/L. NOTED WITH GTUBE IN PLACE WITH MINIMAL RESIDUAL, FEEDING INFUSING. ALL CURRENT NEEDS ATTENDED TO. BED LOW, LOCKED, UPPER RAILS UP, AND CALL LIGHT WITHIN REACH. WILL CONT. TO MONITOR.
--- NOTE | 2019-07-13 19:30 | NUR ---
MS RN NOTE MAURICIO (GRANDDAUGHTER) SPEAKING WITH DR. MEEKS.
[2019-07-13 20:00] VITALS: BP 108/51
[2019-07-14] MEDS: JEVITY 1.2 CAL 1,000 ML BOTTLE GT PRN (01:04)
--- NOTE | 2019-07-14 01:39 | NUR ---
MS RN NOTE PT GRANDDAUGHTER NOTED AT BEDSIDE.
--- NOTE | 2019-07-14 06:15 | NUR ---
MS RN NOTE PT REMAINS IN STABLE CONDITION, NOTED IN BED WITH FAMILY AT BEDSIDE. NO SIGNS OF SOB OR DISTRESS, NO INDICATION OF PAIN OR N/V. IV IN L WRIST #[address] S/L. NOTED WITH GTUBE IN PLACE WITH MINIMAL RESIDUAL, FEEDING INFUSING. ALL CURRENT NEEDS ATTENDED TO. BED LOW, LOCKED, UPPER RAILS UP, AND CALL LIGHT WITHIN REACH. WILL CONT. TO MONITOR AND ENDORSE TO NEXT SHIFT FOR SUSIE.
--- NOTE | 2019-07-14 07:56 | NUR ---
MS RN OPENING NOTES RECEIVED PATIENT IN BED IN NO ACUTE SIGNS OF DISTRESS. HOB ELEVATED, FAMILY AT BEDSIDE. PT IS OBTUNDED, NO S/S OF PAIN OR DISCOMFORTS OBSERVED AT THIS TIME. PT ON VENTURI MASK AT 6LPM. TOLERATING WELL WITH NO SOB NOTED. LEFT WRIST G22 IV LINE INTACT AND PATENT, FLUSHING WELL WITH NO BLEEDING OR S/S OF INFILTRATION NOTED. G-TUBE PATENT WITH ON-GOING FEEDING OF JEVITY 1.2 AT 50CC/HR TOLERATING WELL. ASPIRATION PRECAUTIONS MAINTAINED. SAFETY MEASURES IN PLACE: BED LOW AND LOCKED WITH SR UP X3. CALL LIGHT IN REACH. WILL CONTINUE TO MONITOR.
[2019-07-14 08:00] VITALS: BP 111/43
[2019-07-14] MEDS: LEVETIRACETAM SOL (5 ML) 100 MG/ML UDC GT SCH (08:47)
[2019-07-14] MEDS: MODAFINIL 100 MG TABLET GT SCH (08:48)
[2019-07-14] MEDS: LORAZEPAM 0.5 MG TABLET GT SCH (08:48)
[2019-07-14] MEDS: ENOXAPARIN SODIUM 30 MG/0.3 ML DISP.SYRIN SQ SCH (08:49)
[2019-07-14] MEDS: Z GUARD REMEDY 4 OZ OINT TP SCH (08:51)
--- NOTE | 2019-07-14 14:48 | NUR ---
RN NOTES CALLED [facility] AND SPOKED TO RNS MARYLU AND GAVE REPORT THAT PT WILL BE DISCHARGED BACK TO THEIR FACILITY THIS AFTERNOON.
--- NOTE | 2019-07-14 15:47 | NUR ---
RN NOTES PT DISCHARGED TO [facility] IN STABLE CONDITION. PT REMAINS OBTUNDED. ALL NEEDS AND CARE PROVIDED WELL. V.S TAKEN, STABLE AND RECORDED. PHOTOS OF SKIN ISSUES TAKEN AND FILED ON CHART. ALL BELONGINGS ACCOUNTED FOR AND SIGNED FORM BY DAUGHTER. IV ACCESS REMOVED WITH NO ACTIVE BLEEDING NOTED, DRY DRESSING APPLIED. REPORT AND DISCHARGED INSTRUCTIONS GIVEN EARLIER TO RNS M[facility]LU OF [facility]. PT LEFT UNIT ON MASK @ 6LPM, TOLERATING WELL WITH NO SOB NOTED AT 1545 VIA SINCER[place]VIN ACCOMPANIED BY 2 EMT'S AND PT'S GRAND DAUGHTER. MD AND CHARGE NURSE AWARE OF DISCHARGE.
== END 2019-07-14 15:30 | DRG 64 ==
LOC: ER 06:55 → MED 12:42 → TELE 16:40 → MED 22:12 → TELE 07-06 00:56 → MED 07-06 09:02
PROVIDERS: ADMIT Nurse Practitioner Acute Care; ATTEND Nurse Practitioner Acute Care
PROC: 0DH63UZ Insertion of Feeding Device into Stomach, Percutaneous Approach (ICD-10-PCS; principal; 2019-07-08)
DX: I63.9 Cerebral infarction, unspecified (principal); S72.011A Unspecified intracapsular fracture of right femur, initial encounter for closed fracture; G93.41 Metabolic encephalopathy; N17.9 Acute kidney failure, unspecified; E87.0 Hyperosmolality and hypernatremia; R57.9 Shock, unspecified; W19.XXXA Unspecified fall, initial encounter; Y92.129 Unspecified place in nursing home as the place of occurrence of the external cause; M35.01 Sjogren syndrome with keratoconjunctivitis; K21.9 Gastro-esophageal reflux disease without esophagitis; F03.90 Unspecified dementia, unspecified severity, without behavioral disturbance, psychotic disturbance, mood disturbance, and anxiety; I10 Essential (primary) hypertension; I70.0 Atherosclerosis of aorta; K58.9 Irritable bowel syndrome, unspecified; M48.02 Spinal stenosis, cervical region; M48.061 Spinal stenosis, lumbar region without neurogenic claudication; N32.81 Overactive bladder; R13.10 Dysphagia, unspecified; Z66 Do not resuscitate; Z86.73 Personal history of transient ischemic attack (TIA), and cerebral infarction without residual deficits; Z91.81 History of falling; Z88.0 Allergy status to penicillin; Z88.2 Allergy status to sulfonamides; Z79.899 Other long term (current) drug therapy; I07.1 Rheumatic tricuspid insufficiency; I27.20 Pulmonary hypertension, unspecified; I65.29 Occlusion and stenosis of unspecified carotid artery; R26.9 Unspecified abnormalities of gait and mobility; M50.320 Other cervical disc degeneration, mid-cervical region, unspecified level
CPT/HCPCS: 36415; 36600; 43246; 70450-TC; 70553-TC; 71045-TC; 72125-TC; 72170-TC; 72192-TC; 80048-TC; 80053-TC; 80061-TC; 80305; 81000-TC; 82140-TC; 82533; 82962-TC; 83540-TC; 83735-TC; 84100-TC; 84443-TC; 85025-TC; 85610-TC; 86850-TC; 87040-TC; 87081-TC; 93307-TC; 93880-TC; 95819-TC; A6403; A9579; G0378; J0696; J1650; J1953; J1956; J2704; J3480; J3490; J7030; J7040; J7060

== ENCOUNTER 2021-01-28 05:36 | Inpatient (IN) | payer MEDICARE, OTHER ==
[~2021-01-28] VITALS: Ht 162.6 cm; Wt 56.7 kg
[~2021-01-28 05:36] MED LIST: ACET325T53 GT; APRE30TA2 GT; CRAN3875 GT; CRAN425C6 PO; CYCL30DR OP; DEXT15DR6 EACHEYE; DICY10CA13 GT; DOCU-141 GT; FAMO20TA8 GT; GABA-532 GT; LACT-209 GT; LACT1CAP61 GT; LEVE100S GT; MAGN400O6 GT; MULT-447 GT; OMEG1CAP55 GT; OXYB10TA30 GT; Provigil GT
--- NOTE | 2021-01-28 05:58 | NUR ---
pt bibra c/o tachycardia, leaking picc, sob, and fever. Pt nonverbal at baseline. Per facility, pt has dementia. Pt attached to monitor and pox. Sheikh cath inserted and urine sent to lab. Left hand 20g initated. Pt given call light within reach. MD at bedside
[2021-01-28] MEDS ORDERED: AZTREONAM 2 G in IV NS 0.9% 100 ML IV ONE (06:00)
[2021-01-28] MEDS ORDERED: VANCOMYCIN 1 GM in IV D5W 250 ML IV ONE (06:00)
[2021-01-28] MEDS ORDERED: ACETAMINOPHEN 650 MG/SUPP.RECT RC ONE ×2 (06:03→06:30)
--- NOTE | 2021-01-28 06:16 | NUR ---
urine sent to lab
--- NOTE | 2021-01-28 06:41 | NUR ---
lab at bedside
[2021-01-28 06:53] LABS: BASOPHILS % (AUTO) 0.1 % (0.0-2.0); EOSINOPHILS % (AUTO) 0.2 % (0.0-6.0); HEMATOCRIT 38 % (33-45); HEMOGLOBIN 12.8 g/dL (11.5-14.8); LYMPHOCYTES # (AUTO) 0.4 K/uL (0.8-4.8); LYMPHOCYTES % (AUTO) 2.4 % (20.0-44.0); MEAN CORPUSCULAR HGB CONC 34 g/dl (31.0-36.0); MEAN CORPUSCULAR VOLUME 89 fL (82-100); MONOCYTES # (AUTO) 0.3 K/uL (0.1-1.30); MONOCYTES % (AUTO) 1.8 % (2.0-12.0); NEUTROPHILS # (AUTO) 17.5 K/uL (1.8-8.9); NEUTROPHILS % (AUTO) 95.5 % (43.0-81.0); PLATELET COUNT (AUTO) 276 K/uL (150-450); RED BLOOD CELL COUNT(AUTO) 4.24 MIL/uL (4.0-5.2); WHITE BLOOD COUNT (AUTO) 18.3 K/uL (4.3-11.0)
--- NOTE | 2021-01-28 06:53 | NUR ---
PICC LINE DRESSING CHANGE PROVIDED. PT IS INDEED NOTED WITH PICC LINE INSERTION SITE LEAK WHEN FLUSHED. STRICT STERILE TECHNIQUE OBSERVED DURING THE PROCEDURE.
[2021-01-28 06:56] LABS: BILIRUBIN,URINE NEGATIVE (NEGATIVE); COLOR,URINE YELLOW (YELLOW); LEUKOCYTE ESTERASE ,URINE NEGATIVE (NEGATIVE); NITRITE, URINE NEGATIVE (NEGATIVE); PROTEIN,URINE NEGATIVE (NEGATIVE); UGLUCOSE NEGATIVE (NEGATIVE)
[2021-01-28] MEDS ORDERED: VANCOMYCIN 1 GM VIAL ONE (06:59)
--- NOTE | 2021-01-28 07:08 | NUR ---
COVID SWAB COLLECTED. CALLED LAB FOR CONFERENCE CENTER MANAGER
[2021-01-28 07:09] LABS: CALCIUM, SERUM 9.3 mg/dL (8.5-10.1); CARBON DIOXIDE 25 mmol/L (21-32); CHLORIDE 100 mmol/L (98-107); CREATININE 0.7 mg/dL (0.6-1.3); GLUCOSE 163 mg/dL (74-106); POTASSIUM 4.4 mmol/L (3.5-5.1); SODIUM SERUM 137 mmol/L (136-145); UREA NITROGEN, BLOOD 27 mg/dL (7-18)
--- NOTE | 2021-01-28 07:11 | NUR ---
CONTACTED NURSING GRAVEL HAULER FOR CONTACTING PICC LINE NURSE FOR REPLACEMENT.
[2021-01-28 07:15] LABS: ALANINE AMINOTRANSFERASE 35 U/L (12-78); ALBUMIN 3.1 g/dL (3.4-5.0); ALKALINE PHOSPHATASE 142 U/L (46-116); ASPARTATE AMINOTRANSFERASE 33 U/L (15-37); BILIRUBIN,DIRECT 0.6 mg/dL (0.0-0.2); BILIRUBIN,TOTAL 1.2 mg/dL (0.2-1.0); TOTAL PROTEIN, SERUM 8.6 g/dL (6.4-8.2)
--- NOTE | 2021-01-28 07:18 | NUR ---
gave report to valencia velazco for derrek
--- NOTE | 2021-01-28 07:19 | NUR ---
ASSESED PT ON BED ASLEEP ON BED PT IS AAOX0, NOT IN RESPIRATORY DISTRESS, V/S STABLE, KEPT RESTED AND COMFORTABLE. WILL CONTINUE TO MONITOR.
--- NOTE | 2021-01-28 07:22 | NUR ---
PAGED EPIC FOR PANEL CALL. AWAITING A CALL BACK.
--- NOTE | 2021-01-28 07:35 | NUR ---
CONTACTED DR. Garret BOWENS TO CALL US BACK.
[2021-01-28 07:39] LABS: BACTERIA,URINE Few /HPF (None Seen); SQUAMOUS EPITHELIAL CELL,UR Moderate /HPF (None Seen)
[2021-01-28] MEDS ORDERED: POLY15DR40 EACHEYE (08:32)
[2021-01-28] MEDS ORDERED: CLOT15CR5 TP (08:32)
[2021-01-28] MEDS ORDERED: INSU100V30 SQ (08:32)
[2021-01-28] MEDS ORDERED: ENOX40DI SQ (08:32)
[2021-01-28] MEDS ORDERED: CYCL30DR EACHEYE (08:32)
[2021-01-28] MEDS ORDERED: BISA10SU11 RC (08:32)
[2021-01-28] MEDS ORDERED: MAG30ORA GT (08:32)
[2021-01-28] MEDS ORDERED: ACET650S26 GT (08:32)
--- NOTE | 2021-01-28 12:00 | NUR ---
GOING TO TELE 118.1
--- NOTE | 2021-01-28 12:15 | NUR ---
REPORT GIVEN TO ARI WEBB FOR SUSIE.
[2021-01-28] MEDS ORDERED: BISACODYL SUPP (10 MG) 10 MG/SUPP.RECT SUPP.RECT RC PRN (16:00)
[2021-01-28] MEDS ORDERED: ACETAMINOPHEN 650 MG/20.3 ML UDC GT PRN (16:00)
[2021-01-28] MEDS ORDERED: TPN/PPN PER PHARMACY IV PRN (16:00)
[2021-01-28] MEDS ORDERED: DEXTROSE 50%-WATER 50 ML DISP.SYRIN IV PRN (16:00)
[2021-01-28] MEDS ORDERED: MAG HYDROX/AL HYDROX/SIMETH 30 ML UDC GT PRN (16:00)
[2021-01-28 16:02] VITALS: BP 100/48
[2021-01-28 16:04] VITALS: BP 100/48
[2021-01-28] MEDS ORDERED: GENTAMICIN 120 MG in IV D5W 100 ML IV SCH (18:00)
[2021-01-28] MEDS: BLOOD SUGAR DIAGNOSTIC 1 EACH STRIP IN SCH ×2 (18:36→23:47)
[2021-01-28] MEDS: INSULIN REGULAR, HUMAN 100 UNIT/ML 3 ML VIAL SQ PRN ×2 (18:39→23:49)
[2021-01-28] MEDS: IV 10% DEXTROSE 1,000 ML IV SCH (18:43)
--- NOTE | 2021-01-28 19:21 | NUR ---
RN NURSE NOTES RECEIVED PATIENT , PICC LINE DRESSING CHANGE PROVIDED INTACT FLUSHING PATENT, REPOSITIONED FOR COMFORT, DIM LIGHTS, MADE QUIET TO RELAX, TOLERATED ALL MD MEDICATION ORDERS WELL NO ADVERSE SIDE EFFECTS NOTED.
--- NOTE | 2021-01-28 19:30 | NUR ---
RN NOTE PT RECEIVED IN BED. CURRENTLY ON 2L OF O2 VIA NC SHOWING NO S/S OF RESP DISTRESS. PT IS A/OX1. NON-VERBAL. PENALOZA CATH NOTED. IV LINE ON LEFT HAND GAUGE 20 NOTED. MIDLINE NOTED ON RIGHT UPPER ARM. ALL SAFETY MEASURES IMPLEMENTED. BED LOCKED AND IN LOWEST POSITION. BED ALARM ON. WILL CONTINUE TO MONITOR AND ASSESS PATIENT FOR ANY CHANGES.
[2021-01-28] MEDS: D5W IV SCH ×2 (19:53→19:58)
[2021-01-28] MEDS: GENTAMICIN IV SCH ×2 (19:53→19:58)
[2021-01-28 20:00] VITALS: BP 148/62
[2021-01-28] MEDS: METRONIDAZOLE 500MG/ NS 100ML 500 MG in PREMIX 1 EA IV SCH (21:25)
[2021-01-29] VITALS: BP 140/73
--- NOTE | 2021-01-29 01:00 | NUR ---
RN NOTE PT RIGHT UPPER ARM MID LINE WAS LEAKING. CAMILO PAULSON NP RE-INSERTED MIDLINE ON LEFT UPPER ARM. LINE FLUSHED, PATENT, AND INTACT. REMOVED RIGHT UPPER ARM MIDLINE.
[2021-01-29] MEDS: D5W IV SCH (03:18)
[2021-01-29] MEDS: GENTAMICIN IV SCH (03:18)
[2021-01-29 04:00] VITALS: BP 106/57
[2021-01-29] MEDS: METRONIDAZOLE 500MG/ NS 100ML 500 MG in PREMIX 1 EA IV SCH ×3 (05:26→21:05)
[2021-01-29] MEDS: BLOOD SUGAR DIAGNOSTIC 1 EACH STRIP IN SCH ×4 (05:39→23:44)
[2021-01-29] MEDS: INSULIN REGULAR, HUMAN 100 UNIT/ML 3 ML VIAL SQ PRN ×3 (05:41→23:44)
[2021-01-29] MEDS ORDERED: VANCOMYCIN 1 GM in IV D5W 250 ML IV SCH (07:00)
--- NOTE | 2021-01-29 07:21 | NUR ---
RN NOTE NO CHANGES IN PT CONDITION DURING SHIFT. CURRENTLY ON 2L OF O2 VIA NC SHOWING NO S/S OF RESP DISTRESS. PT IS A/OX1. IV LINE ON LEFT HAND GAUGE 20 NOTED. MIDLINE ON LEFT UPPER ARM. LINE FLUSHED, PATENT, AND INTACT WITH NO INFILTRATION. ALL DUE MEDS GIVEN ORDERED. PT KEPT CLEAN AND COMFORTABLE. ALL SAFETY MEASURES IMPLEMENTED. BED LOCKED AND IN LOWEST POSITION. BED ALARM ON. WILL ENDORSE TO MORNING SHIFT RN FOR SUSIE.
[2021-01-29] MEDS: VANCOMYCIN 0.75 GM in IV D5W 250 ML IV SCH (07:29)
--- NOTE | 2021-01-29 07:33 | NUR ---
TURN SUPERVISOR NOTE PATIENT IN BED ON 2L NC NO SOB NOTED AT THIS TIME , ON IVF ORDERED , LT UA MID LINE IN PLACE , BED IN LOWEST AND LOCKED POSITION ,ON TELEMONITOR SR ,BED IN LOWEST AND LOCKED POSITION, CALL LIGHT WITHIN REACH , WILL CONT TO MONITOR
[2021-01-29 08:00] VITALS: BP 105/40
[2021-01-29] MEDS: POLYVINYL ALCOHOL 15 ML BOTTLE OP SCH (08:06)
[2021-01-29] MEDS: ENOXAPARIN SODIUM 40 MG/0.4 ML DISP.SYRIN SQ SCH (08:10)
[2021-01-29 12:00] VITALS: BP 136/45
--- NOTE | 2021-01-29 12:00 | NUR ---
FIRE APPARATUS ENGINEER NOTE ROUNDS MADE ALL NEEDS ATTENDEE, WILL CONT TO MONITOR CLOSELY
[2021-01-29 12:59] LABS: BASOPHILS % (AUTO) 0.2 % (0.0-2.0); EOSINOPHILS % (AUTO) 0.1 % (0.0-6.0); HEMATOCRIT 34 % (33-45); HEMOGLOBIN 11.2 g/dL (11.5-14.8); LYMPHOCYTES # (AUTO) 0.5 K/uL (0.8-4.8); LYMPHOCYTES % (AUTO) 3.6 % (20.0-44.0); MEAN CORPUSCULAR HGB CONC 33 g/dl (31.0-36.0); MEAN CORPUSCULAR VOLUME 89 fL (82-100); MONOCYTES # (AUTO) 0.7 K/uL (0.1-1.30); MONOCYTES % (AUTO) 5.1 % (2.0-12.0); NEUTROPHILS # (AUTO) 13.1 K/uL (1.8-8.9); PLATELET COUNT (AUTO) 207 K/uL (150-450); RED BLOOD CELL COUNT(AUTO) 3.77 MIL/uL (4.0-5.2); WHITE BLOOD COUNT (AUTO) 14.4 K/uL (4.3-11.0)
[2021-01-29] MEDS ORDERED: GENTAMICIN 120 MG in IV D5W 100 ML IV SCH (13:00)
[2021-01-29] MEDS: IV 10% DEXTROSE 1,000 ML IV SCH ×2 (13:30→15:42)
--- NOTE | 2021-01-29 13:30 | NUR ---
ACCOUNTS RECEIVABLE SUPERVISOR NOTE PER PHARMACY WILL START TPN AT 5 PM AND 4PM WILL STOP D10%
[2021-01-29 14:41] LABS: CALCIUM, SERUM 8.4 mg/dL (8.5-10.1); CREATININE 0.7 mg/dL (0.6-1.3); POTASSIUM 3.3 mmol/L (3.5-5.1)
[2021-01-29 14:50] LABS: MAGNESIUM 1.9 mg/dL (1.8-2.4); PHOSPHORUS 1.8 mg/dL (2.5-4.9)
[2021-01-29] MEDS ORDERED: DEXTROSE 50%-WATER 50 ML DISP.SYRIN IV PRN (15:00)
[2021-01-29] MEDS: POTASSIUM CL. PREMIX PERIPHER. 50 ML IV SCH ×2 (15:44→16:34)
--- NOTE | 2021-01-29 15:51 | NUR ---
CLARIFIED WITH DR. BOWENS PATIENT POSITIVE BLOOD CULTURE PER DR. BOWENS OK FOR MIDLINE 24 HOURS POST REMOVAL OF OLD CENTRAL LINE AND PER DR. FELECIA PAGE WILL PLACE LINE TONITE.PHARMACY MADE AWARE.
--- NOTE | 2021-01-29 15:51 | NUR ---
ALIGNER TYPEWRITER NOTE LEFT A MESSAGE TO FAMILY TO GET CONSENT FOR PICC LINE , SINCE ONLY MIDLINE AT THIS TIME ,PHARMACY STATED CONT WITH D10%
--- NOTE | 2021-01-29 15:53 | NUR ---
MESSAGE LEFT TO FAMILY REGARDING CONSENT FOR PICCLINE ,AWAITING FOR RESPONSE.
--- NOTE | 2021-01-29 15:55 | NUR ---
PER DR. BOWENS THE OLD PICC LINE WAS REMOVED BY [facility] (MIDLINE NURS)LAST NIGHT.
[2021-01-29 16:00] VITALS: BP 106/43
[2021-01-29] MEDS ORDERED: TPN BAG #1 IV SCH (16:00)
--- NOTE | 2021-01-29 17:28 | NUR ---
JOSE RN NOTE DAUGHTER STILL DID NOT GIVE CONSENT FOR PICC LINE UNTILL SPEAK WITH PANEL MACHINE TENDER ,TRANSFER CALL TO PANEL MACHINE TENDER WILL F\U
--- NOTE | 2021-01-29 17:54 | NUR ---
SCHEDULING ASSISTANT NOTE SPOKE WITH DAUGHTER CONSENT FOR PICC LINE OBTAINED
[2021-01-29] MEDS ORDERED: Sodium Phosphate 15 MMOL in IV NS 0.9% 250 ML IV ONE (18:00)
--- NOTE | 2021-01-29 18:33 | NUR ---
UROLOGY NURSE NOTE CONT ON IVF ORDERED NA PHOS , WILL HOLD D10% AT THIS TIME NO IV ACCESS, AWAITING FOR PICC LINE NURSE TO COME, BED IN LOWEST AND LOCKED POSITION, NO SOB NOTED AT THIS TIE, WILL CONT TO MONITOR CLOSELY
--- NOTE | 2021-01-29 18:47 | NUR ---
TILTROTOR CREW CHIEF NOTE PER PHARMACY WILL START TPN TOMORROW MEANTIME CONT D10% , WILL CONT TO MONITOR, [facility] SHEETS PICC LINE WILL COME TONIGHT TO INSERT PICC LINE
--- NOTE | 2021-01-29 19:45 | NUR ---
RN NOTE RECEIVED PT SLEEPING AROUSES EASILY TO VERBAL TACTILE. NOT IN ANY DISTRESS. MIDLINE PATENT AND INTACT. SODIUM PHOSPHATE RUNNING. PENALOZA DRAINING CLEAR YELLOW URINE. AWAITING FOR PICC LINE PLACEMENT. WILL CONTINUE TO MONITOR.
[2021-01-29 20:00] VITALS: BP 106/51
[2021-01-29] MEDS: MUPIROCIN OINT 2% 22 GM TUBE NS SCH (21:05)
[2021-01-30] VITALS: BP 110/48
[2021-01-30 04:00] VITALS: BP 114/49
[2021-01-30] MEDS: METRONIDAZOLE 500MG/ NS 100ML 500 MG in PREMIX 1 EA IV SCH (04:49)
--- NOTE | 2021-01-30 05:00 | NUR ---
RN NOTE PICC LINE INSERTED ON PHILIPPE BY PICC LINE NURSE. MIDLINE WAS REMOVED. GOOD BLOOD RETURN, FLUSHES WELL.
[2021-01-30] MEDS: BLOOD SUGAR DIAGNOSTIC 1 EACH STRIP IN SCH ×3 (05:11→18:14)
[2021-01-30] MEDS: INSULIN REGULAR, HUMAN 100 UNIT/ML 3 ML VIAL SQ PRN ×3 (05:11→18:14)
[2021-01-30] MEDS: VANCOMYCIN 0.75 GM in IV D5W 250 ML IV SCH (06:12)
[2021-01-30 06:41] LABS: BASOPHILS % (AUTO) 0.3 % (0.0-2.0); EOSINOPHILS % (AUTO) 1.4 % (0.0-6.0); HEMATOCRIT 33 % (33-45); HEMOGLOBIN 10.9 g/dL (11.5-14.8); LYMPHOCYTES # (AUTO) 0.7 K/uL (0.8-4.8); LYMPHOCYTES % (AUTO) 8.3 % (20.0-44.0); MEAN CORPUSCULAR HGB CONC 34 g/dl (31.0-36.0); MEAN CORPUSCULAR VOLUME 90 fL (82-100); NEUTROPHILS # (AUTO) 6.8 K/uL (1.8-8.9); PLATELET COUNT (AUTO) 186 K/uL (150-450); RED BLOOD CELL COUNT(AUTO) 3.59 MIL/uL (4.0-5.2); WHITE BLOOD COUNT (AUTO) 8.7 K/uL (4.3-11.0)
[2021-01-30 07:05] LABS: CALCIUM, SERUM 8.2 mg/dL (8.5-10.1); CREATININE 0.6 mg/dL (0.6-1.3); PHOSPHORUS 2.1 mg/dL (2.5-4.9); POTASSIUM 3.6 mmol/L (3.5-5.1)
--- NOTE | 2021-01-30 07:15 | NUR ---
RN NOTE PT CONTINUE ON O2 THERAPY, NOT IN ANY DISTRESS. SR ON TELE MONITOR, PT CONTINUE ON IVF D10W AT 41ML/HR. PENALOZA DRAINING WELL. PT REMAINS AFEBRILE. ALL SAFETY MEASURES MAINTAINED. PICC LINE INTACT, ENDORSE TO NEXT SHIFT NURSELIZETH TO F/UP WITH PHARMACY FOR TPN.
[2021-01-30 08:00] VITALS: BP 90/49
[2021-01-30] MEDS: POLYVINYL ALCOHOL 15 ML BOTTLE OP SCH (09:15)
[2021-01-30] MEDS: ENOXAPARIN SODIUM 40 MG/0.4 ML DISP.SYRIN SQ SCH (09:15)
[2021-01-30] MEDS: MUPIROCIN OINT 2% 22 GM TUBE NS SCH ×2 (09:16→20:03)
[2021-01-30] MEDS ORDERED: POTASSIUM PHOSPHATE MM 7.5 MMOL in IV NS 0.9% 100 ML IV SCH (11:00)
[2021-01-30 12:00] VITALS: BP 102/53
[2021-01-30] MEDS ORDERED: POTASSIUM PHOSPHATE MM 15 MMOL in IV NS 0.9% 250 ML IV SCH (12:00)
[2021-01-30] MEDS: IV 10% DEXTROSE 1,000 ML IV SCH (14:02)
[2021-01-30] MEDS ORDERED: Sodium Phosphate 15 MMOL in IV NS 0.9% 250 ML IV ONE (15:00)
[2021-01-30 16:29] VITALS: BP 110/51
[2021-01-30] MEDS ORDERED: TPN BAG #1 IV SCH (18:00)
--- NOTE | 2021-01-30 19:00 | NUR ---
RN NOTE PATIENT IN BED NO DISTRESS/SOB, PICC LINE PATENT AND INTACT,TO START TPN AT 1800, AWAITING FOR PHARMACY TO DELIVER, OTHERWISE NO SIGNIFICANT CHANGE IN CONDITION, AFEBRILE, ALL SAFETY MEASURES MAINTAINED, WILL ENDORSE CONTINUITY OF CARE TO ONCOMING NURSE.
[2021-01-30 20:00] VITALS: BP 124/64
--- NOTE | 2021-01-30 20:00 | NUR ---
RN NOTE PT IN BED, ON O2 AT 2L. NOT IN ANY DISTRESS. SR ON TELE MONITOR. PICC LINE PATENT AND INTACT, TPN STARTED ORDERED. PENALOZA IN PLACE, DRAINING CLEAR DARK YELLOW URINE. WILL CONTINUE TO MONITOR. ALL SAFETY MEASURES IN PLACE
[2021-01-31] VITALS: BP 121/64
[2021-01-31] MEDS: BLOOD SUGAR DIAGNOSTIC 1 EACH STRIP IN SCH ×4 (00:17→17:45)
[2021-01-31 04:00] VITALS: BP 114/62
[2021-01-31] MEDS: INSULIN REGULAR, HUMAN 100 UNIT/ML 3 ML VIAL SQ PRN ×2 (06:05→18:15)
[2021-01-31 06:32] LABS: BASOPHILS % (AUTO) 0.3 % (0.0-2.0); EOSINOPHILS % (AUTO) 1.6 % (0.0-6.0); HEMATOCRIT 33 % (33-45); HEMOGLOBIN 11.4 g/dL (11.5-14.8); LYMPHOCYTES # (AUTO) 0.8 K/uL (0.8-4.8); LYMPHOCYTES % (AUTO) 12.7 % (20.0-44.0); MEAN CORPUSCULAR HGB CONC 34 g/dl (31.0-36.0); MEAN CORPUSCULAR VOLUME 90 fL (82-100); MONOCYTES # (AUTO) 0.8 K/uL (0.1-1.30); MONOCYTES % (AUTO) 12.2 % (2.0-12.0); NEUTROPHILS # (AUTO) 4.7 K/uL (1.8-8.9); NEUTROPHILS % (AUTO) 73.2 % (43.0-81.0); PLATELET COUNT (AUTO) 182 K/uL (150-450); RED BLOOD CELL COUNT(AUTO) 3.73 MIL/uL (4.0-5.2); WHITE BLOOD COUNT (AUTO) 6.4 K/uL (4.3-11.0)
--- NOTE | 2021-01-31 07:15 | NUR ---
RN NOTE PT CONTINUE ON O2 THERAPY, NOT IN ANY DISTRESS. SR ON TELE MONITOR, PT CONTINUE ON TPN 50ML/HR. NO SIGNS OF INFILTRATION NOTED. PENALOZA DRAINING WELL. REMAIN AFEBRILE. ALL SAFETY MEASURES MAINTAINED.ENDORSED TO AM NURSE FOR SUSIE.
[2021-01-31 07:32] LABS: CALCIUM, SERUM 8.1 mg/dL (8.5-10.1); CREATININE 0.6 mg/dL (0.6-1.3); MAGNESIUM 1.9 mg/dL (1.8-2.4); PHOSPHORUS 2.2 mg/dL (2.5-4.9); POTASSIUM 3.3 mmol/L (3.5-5.1)
--- NOTE | 2021-01-31 07:38 | NUR ---
RN NOTE PATIENT IS IN BED WITH HOB AT SEMI FOWLERS POSITION. PATIENT IS ON 2L NC WITH NO SIGNS OF LABORED BREATHING. PATIENT IS AOX1. PENALOZA CATHETER IS IN PLACE. PHILIPPE PICC LINE IS PATENT AND INTACT. BED IS LOCKED IN THE LOWEST POSITION, 3 GUARD RAILS RAISED, CALL CUMMINS WITHIN REACH, AND ALL HOSPITAL SAFETY PRECAUTIONS ARE BEING FOLLOWED. WILL CONTINUE TO MONITOR THROUGHOUT SHIFT.
[2021-01-31 08:00] VITALS: BP 147/56
[2021-01-31] MEDS: ENOXAPARIN SODIUM 40 MG/0.4 ML DISP.SYRIN SQ SCH (08:33)
[2021-01-31] MEDS: POLYVINYL ALCOHOL 15 ML BOTTLE OP SCH (08:34)
[2021-01-31] MEDS: MUPIROCIN OINT 2% 22 GM TUBE NS SCH ×2 (08:34→21:58)
--- NOTE | 2021-01-31 08:46 | NUR ---
RN NOTE LAB MACHINES ARE DOWN FOR VANCO TROUGH. NOTIFIED PHARMACY OKAY TO HOLD DOSE UNTIL TROUGH IS RECEIVED.
[2021-01-31] MEDS: POTASSIUM CL. PREMIX PERIPHER. 50 ML IV SCH ×2 (10:08→11:02)
[2021-01-31 11:48] LABS: FERRITIN 388 ng/mL (8-388); IRON, SERUM 35 ug/dl (50-175); TOTAL IRON BINDING CAPACITY 145 ug/dl (250-450)
[2021-01-31 12:00] VITALS: BP 144/48
[2021-01-31] MEDS: VANCOMYCIN 0.75 GM in IV D5W 250 ML IV SCH (12:12)
[2021-01-31] MEDS ORDERED: POTASSIUM PHOSPHATE MM 7.5 MMOL in IV NS 0.9% 100 ML IV SCH (13:00)
[2021-01-31] MEDS ORDERED: Sodium Phosphate 15 MMOL in IV NS 0.9% 245 ML IV ONE (13:00)
[2021-01-31] MEDS ORDERED: TPN BAG #2 IV SCH (14:00)
[2021-01-31 16:00] VITALS: BP 130/53
[2021-01-31] MEDS ORDERED: POTASSIUM PHOSPHATE MM 15 MMOL in IV NS 0.9% 250 ML IV SCH (17:00)
--- NOTE | 2021-01-31 18:52 | NUR ---
RN NOTE PATIENT IS IN BED WITH HOB AT SEMI FOWLERS POSITION. PATIENT IS ON 2L NC WITH NO SIGNS OF LABORED BREATHING. PATIENT IS AOX1. PENALOZA CATHETER IS IN PLACE. PHILIPPE PICC LINE IS PATENT AND INTACT. BED IS LOCKED IN THE LOWEST POSITION, 3 GUARD RAILS RAISED, CALL CUMMINS WITHIN REACH, AND ALL HOSPITAL SAFETY PRECAUTIONS ARE BEING FOLLOWED. WILL CONTINUE TO MONITOR THROUGHOUT SHIFT. ALL DUE MEDS GIVEN AND PATIENT REMAINED STABLE THROUGHOUT SHIFT. WILL ENDORSE TO AC/DC REWINDER RN.
[2021-01-31 20:00] VITALS: BP 150/60
[2021-01-31] MEDS ORDERED: POTASSIUM CL. PREMIX PERIPHER. 50 ML IV SCH (21:00)
[2021-02-01] VITALS: BP 177/85
[2021-02-01] MEDS: BLOOD SUGAR DIAGNOSTIC 1 EACH STRIP IN SCH ×4 (00:17→17:22)
--- NOTE | 2021-02-01 01:11 | NUR ---
B/P 177/85. new order for hydralazine 10mg IV PRN for SBP >160
[2021-02-01] MEDS ORDERED: hydrALAZINE HCL IV 20 MG VIAL IV PRN (01:30)
[2021-02-01 04:00] VITALS: BP 143/71
--- NOTE | 2021-02-01 04:00 | NUR ---
B/P went down to 143/71
[2021-02-01] MEDS ORDERED: TPN BAG #3 IV SCH (06:40)
[2021-02-01 06:58] LABS: BASOPHILS % (AUTO) 0.4 % (0.0-2.0); EOSINOPHILS % (AUTO) 1.1 % (0.0-6.0); HEMATOCRIT 35 % (33-45); HEMOGLOBIN 11.7 g/dL (11.5-14.8); LYMPHOCYTES # (AUTO) 0.9 K/uL (0.8-4.8); MEAN CORPUSCULAR HGB CONC 34 g/dl (31.0-36.0); MEAN CORPUSCULAR VOLUME 89 fL (82-100); MONOCYTES # (AUTO) 0.7 K/uL (0.1-1.30); MONOCYTES % (AUTO) 12.1 % (2.0-12.0); NEUTROPHILS # (AUTO) 4.5 K/uL (1.8-8.9); NEUTROPHILS % (AUTO) 72.4 % (43.0-81.0); PLATELET COUNT (AUTO) 199 K/uL (150-450); RED BLOOD CELL COUNT(AUTO) 3.94 MIL/uL (4.0-5.2); WHITE BLOOD COUNT (AUTO) 6.2 K/uL (4.3-11.0)
--- NOTE | 2021-02-01 07:00 | NUR ---
[address] [facility] not in [facility]. will call pharmacy.
--- NOTE | 2021-02-01 07:06 | NUR ---
Patient has been A&Ox0. VSS. No clinical indications of pain or discomfort. Tolerating TPN well. No sigfns of hypo or hyperglycemic reactions BS 120 at 0600. SR/ST on monitor. Tolerating O2 2L well, O2 sats kept above 94%. PHILIPPE PICC line flushed and patent.
[2021-02-01 07:14] LABS: CALCIUM, SERUM 7.9 mg/dL (8.5-10.1); CARBON DIOXIDE 26 mmol/L (21-32); CHLORIDE 103 mmol/L (98-107); CREATININE 0.5 mg/dL (0.6-1.3); GLUCOSE 128 mg/dL (74-106); MAGNESIUM 1.7 mg/dL (1.8-2.4); PHOSPHORUS 1.9 mg/dL (2.5-4.9); POTASSIUM 3.3 mmol/L (3.5-5.1); SODIUM SERUM 136 mmol/L (136-145); UREA NITROGEN, BLOOD 13 mg/dL (7-18)
[2021-02-01 08:00] VITALS: BP 151/62
[2021-02-01] MEDS: ENOXAPARIN SODIUM 40 MG/0.4 ML DISP.SYRIN SQ SCH (08:49)
[2021-02-01] MEDS: MUPIROCIN OINT 2% 22 GM TUBE NS SCH (08:50)
[2021-02-01] MEDS: POLYVINYL ALCOHOL 15 ML BOTTLE OP SCH (08:50)
[2021-02-01] MEDS: POTASSIUM CL. PREMIX PERIPHER. 50 ML IV SCH ×3 (10:17→16:51)
[2021-02-01] MEDS ORDERED: Sodium Phosphate 15 MMOL in IV NS 0.9% 245 ML IV SCH (11:00)
[2021-02-01 12:00] VITALS: BP 164/69
[2021-02-01] MEDS ORDERED: VANCOMYCIN 0.75 GM in IV D5W 250 ML IV SCH (12:00)
[2021-02-01] MEDS: INSULIN REGULAR, HUMAN 100 UNIT/ML 3 ML VIAL SQ PRN (12:08)
[2021-02-01] MEDS: Magnesium 1GM/D5W 100ML PREMIX 100 ML IV SCH ×2 (13:46→15:00)
--- NOTE | 2021-02-01 15:38 | NUR ---
RN NOTE GAVE REPORT TO ARI JIMENEZ FROM [facility] #[phone]
--- NOTE | 2021-02-01 15:40 | NUR ---
RN NOTE INFORMED DAVE (SISTER) REGARDING THE DISCHARGE INSTRUCTIONS FOR THE PT #[phone]
[2021-02-01 16:00] VITALS: BP 144/56
--- NOTE | 2021-02-01 18:32 | NUR ---
END OF SHIFT SUMMARY PATIENT IS A/O X1. ON 02 AT 2 LPM VIA NC, IN NO APPARENT DISTRESS. NO REPORTS OF ANY PAIN AND DISCOMFORT. IV ACCESS ON PHILIPPE PICC LINE, INTACT AND PATENT. TELE READING SHOWS SR 80'S. TPN RUNNING X 60 ML/HR. NO SIGNS OF INFILTRATION. DUE MEDS GIVEN ORDERED. PENALOZA CATH IN PLACE, DRAINING YELLOW URINE, 1000 CC OUTPUT. SAFETY MEASURES MAINTAINED. BED IN LOWEST POSITION, BRAKES LOCKED. SIDE RAILS UP X2. KEPT CALL LIGHT WITHIN REACH. PATIENT WILL BE DISCHARGED TONIGHT. WILL ENDORSE CONTINUITY OF CARE TO ONCOMING SHIFT.
[2021-02-01] MEDS ORDERED: POTASSIUM CL. PREMIX PERIPHER. 50 ML IV SCH (20:00)
--- NOTE | 2021-02-01 21:00 | NUR ---
LAND ACQUISITION MANAGEROFFICE MACHINE INSTALLER NOTE PT DISCHARGED TO [facility] AT THIS TIME. PT MEDICALLY STABLE AND CLEARED FOR DISCHARGE BY DR BOWENS. ALL NEEDS HAVE BEEN MET. ALL DISCHARGE INSTRUCTIONS PROVIDED. PT KEPT CLEAN AND DRY. PHILIPPE PICC LINE KEPT INTACT DUE TO CONTINUATION OF IV VANCO. BELONGING LIST ACCOUNTED FOR AND WITH PT. ID BAND AND TELE BOX REMOVED. PT TRANSPORTED VIA STRETCHER ACCOMPANIED BY 2 EMT'S FROM [facility]. CHARGE NURSE MARS AND DR BOWENS AWARE.
[2021-02-01] MEDS ORDERED: TPN BAG #4 IV SCH (23:00)
[2021-02-02] MEDS ORDERED: RESTASIS OPTH OP SCH (09:00)
[2021-02-02] MEDS ORDERED: TPN BAG #5 IV SCH (13:00)
== END 2021-02-01 21:04 | DRG 314 ==
LOC: ER 05:38 → TELE1 12:03
PROVIDERS: ADMIT Internal Medicine Nephrology; ATTEND Internal Medicine Nephrology
PROC: 05HA33Z Insertion of Infusion Device into Left Brachial Vein, Percutaneous Approach (ICD-10-PCS; principal; 2021-01-29)
PROC: 02HV33Z Insertion of Infusion Device into Superior Vena Cava, Percutaneous Approach (ICD-10-PCS; 2021-01-30)
PROC: B548ZZA Ultrasonography of Superior Vena Cava, Guidance (ICD-10-PCS; 2021-01-30)
DX: T80.211A Bloodstream infection due to central venous catheter, initial encounter (principal); A41.89 Other specified sepsis; G92 Toxic encephalopathy; J18.9 Pneumonia, unspecified organism; E87.2 Acidosis; R64 Cachexia; F03.90 Unspecified dementia, unspecified severity, without behavioral disturbance, psychotic disturbance, mood disturbance, and anxiety; Z20.822 Contact with and (suspected) exposure to COVID-19; Y92.89 Other specified places as the place of occurrence of the external cause; Z86.73 Personal history of transient ischemic attack (TIA), and cerebral infarction without residual deficits; Y84.8 Other medical procedures as the cause of abnormal reaction of the patient, or of later complication, without mention of misadventure at the time of the procedure; Y71.2 Prosthetic and other implants, materials and accessory cardiovascular devices associated with adverse incidents; N32.81 Overactive bladder; I10 Essential (primary) hypertension; R13.10 Dysphagia, unspecified; Z74.01 Bed confinement status; Z88.2 Allergy status to sulfonamides; Z88.0 Allergy status to penicillin; M48.00 Spinal stenosis, site unspecified; Z79.899 Other long term (current) drug therapy; R09.02 Hypoxemia; Z82.49 Family history of ischemic heart disease and other diseases of the circulatory system; Z93.1 Gastrostomy status
CPT/HCPCS: 36415; 71045-TC; 80048-TC; 80076-TC; 80170-TC; 80202-TC; 81001; 82728-TC; 82962-TC; 83540-TC; 83605-TC; 83735-TC; 84100-TC; 84478-TC; 84484-TC; 85025-TC; 85730-TC; 87040-TC; 87070-TC; 87081-TC; 87086-TC; 87186-TC; A4216; A9563; C9803; G0378; J0360; J1580; J1650; J1815; J3370; J3475; J3480; J3490; J7030; J7050; J7060; U0003